=== PATIENT | female | born 1970 | race Caucasian/White ===

== ENCOUNTER 2017-04-15 01:55 | Emergency (ER) | payer SELFPAY ==
[2017-04-15] MEDS ORDERED: ONDANSETRON 4 MG/2 ML VIAL IVP ONE (01:58)
[2017-04-15] MEDS ORDERED: NS 1,000 ML IV ONE (01:58)
--- NOTE | 2017-04-15 02:01 | EDPHY ---
H & P HPI/ROS: HPI CHIEF COMPLAINT: Alcohol intoxication, minimally responsive HISTORY OF PRESENT ILLNESS: This patient 47-year-old female unknown medical or surgical history she presents emergency room by EMS highly intoxicated with alcohol and minimally responsive. Is reported by EMS that she just flew here from [facility] she is visiting her family. She has been here for 1 day. They went out this evening and she had multiple shots of liquor. They were unable to get her into the house to the late her an alleyway with a blanket. And called 911. EMS to arrive her minimally responsive. There is no reported trauma. They did place a nasal airway. And brought to the emergency room. Upon arrival to the emergency room she is extremely lethargic, she is breathing. Heart rate 108. Pulse ox 91% on room air. She does respond to painful stimuli but not verbal. There is no family at bedside. History review of systems is limited and only reported by EMS. Past Medical History: Unknown medical history Past Surgical History: Unknown surgical history Social History: From [facility]. Family History: Noncontributory ROS REVIEW OF SYSTEMS: A comprehensive 10 point review of systems is otherwise negative aside from elements mentioned in the history of present illness. Exam Constitutional extremely lethargic, smells of alcohol, highly intoxicated, triage nursing summary reviewed, vital signs reviewed Eyes normal conjunctivae and sclera, EOMI, PERRLA. Dysconjugate gaze. HENT normal inspection, atraumatic, moist mucus membranes, no epistaxis, neck supple/ no meningismus, no raccoon eyes. Respiratory clear to auscultation bilaterally, normal breath sounds, no respiratory distress, no wheezing. Cardiovascular rate normal, regular rhythm, no murmur, no edema, distal pulses normal. Gastrointestinal soft, non-tender, no rebound, no guarding, normal bowel sounds, no distension, no pulsatile mass. Genitourinary no CVA tenderness. Musculoskeletal no midline vertebral tenderness, full range of motion, no calf swelling, no tenderness of extremities, no meningismus, good pulses, neurovascularly intact. Skin pink, warm, & dry, no rash, skin atraumatic. Neurologic extremely lethargic. Dysconjugate gaze. Psychiatric normal mood/affect. Heme/Lymph/Immune no lymphadenopathy. Differential Diagnosis: Includes but is not limited to in a particular order acute alcohol intoxication, electrolyte disturbance, intracranial bleed. Medical Decision Making: Plan for this patient IV establishment full campus monitor, IV fluid bolus 1 L normal saline, 4 mg IV Zofran, check blood work, alcohol level. CT scan of her head due to how lethargic she is. Re-evaluation: CT scan of the head without IV contrast The results of the study are negative for acute bleed.. The study was read by . I viewed the images myself on the PACS system. 0302AM: Serum ETOH 420 0450AM: Patient remains very intoxicated with alcohol. Moaning at times. Her scan of her head does not show any acute bleed. Serum alcohol level 420. She needs further time to sober. Source: Patient, EMS Constitutional: Initial Vital Signs Temperature (C) 36.8 C 04/15/17 02:05 Heart Rate 53 L 04/15/17 02:05 Respiratory Rate 18 04/15/17 02:05 Blood Pressure 119/88 H 04/15/17 02:05 O2 Sat (%) 94 04/15/17 02:05 O2 Delivery Mode Room Air O2 (L/minute) 2 Allergies/Adverse Reactions: Penicillins Allergy (Verified 04/15/17 02:51) Home Medications: Medication Instructions Recorded Unobtainable 04/15/17 Medical Decision Making - Data Points Laboratory Results: Laboratory Results 04/15/17 02:09 04/15/17 02:09 04/15/17 04/15/17 02:09 02:09 WBC 10.00 10^3/uL H 10^3/uL (3.80-9.50) RBC 4.94 10^6/uL 10^6/uL (4.18-5.33) Hgb 15.0 g/dL g/dL (12.6-16.3) Hct 45.0 % % (38.0-47.0) MCV 91.1 fL fL (81.5-99.8) MCH 30.4 pg pg (27.9-34.1) MCHC 33.3 g/dL g/dL (32.4-36.7) RDW 12.6 % % (11.5-15.2) Plt Count 302 10^3/uL 10^3/uL (150-400) MPV 9.8 fL fL (8.7-11.7) Neut % (Auto) 58.3 % % (39.3-74.2) Lymph % (Auto) 34.6 % % (15.0-45.0) [place] % (Auto) 4.8 % % (4.5-13.0) Eos % (Auto) 1.4 % % (0.6-7.6) Baso % (Auto) 0.6 % % (0.3-1.7) Nucleat RBC Rel Count 0.0 % % (0.0-0.2) Absolute Neuts (auto) 5.83 10^3/uL 10^3/uL (1.70-6.50) Absolute Lymphs (auto) 3.46 10^3/uL H 10^3/uL (1.00-3.00) Absolute Monos (auto) 0.48 10^3/uL 10^3/uL (0.30-0.80) Absolute Eos (auto) 0.14 10^3/uL 10^3/uL (0.03-0.40) Absolute Basos (auto) 0.06 10^3/uL 10^3/uL (0.02-0.10) Absolute Nucleated RBC 0.00 10^3/uL 10^3/uL (0-0.01) Immature Gran % 0.3 % % (0.0-1.1) Immature Gran # 0.03 10^3/uL 10^3/uL (0.00-0.10) Sodium 147 mEq/L H mEq/L (134-144) Potassium 4.1 mEq/L mEq/L (3.5-5.2) Chloride 110 mEq/L mEq/L (97-110) Carbon Dioxide 18 mEq/l L mEq/l (22-31) Anion Gap 19 mEq/L H mEq/L (8-16) BUN 13 mg/dL mg/dL (7-23) Creatinine 0.7 mg/dL mg/dL (0.6-1.0) Estimated GFR > 60 Glucose 111 mg/dL H mg/dL (70-100) Calcium 9.6 mg/dL mg/dL (8.5-10.4) Specimen Hemolysis Salicylates < 1.0 mg/dL L mg/dL (2.0-20.0) Acetaminophen < 10 mcg/mL L mcg/mL (10-30) Ethyl Alcohol 420 mg/dL H* mg/dL (0-10) Medications Given: Discontinued Medications Sodium Chloride (Ns) 1,000 mls @ 0 mls/hr IV ONCE ONE PRN Reason: Wide Open Stop: 04/15/17 01:59 Last Admin: 04/15/17 03:01 Dose: 1,000 mls Ondansetron HCl (Zofran) 4 mg IVP EDNOW ONE Stop: 04/15/17 01:59 Last Admin: 04/15/17 03:02 Dose: 4 mg Departure - Departure Disposition: Home, Routine, Self-Care Clinical Impression: Alcoholic intoxication Qualifiers: Complication of substance-induced condition: uncomplicated Qualified Code(s): F10.920 - Alcohol use, unspecified with intoxication, uncomplicated Condition: Good Instructions: Alcohol Intoxication (ED) Referrals: Patient,NotPresent [Primary Care Provider] - As per Instructions
[2017-04-15 02:20] LABS: % IMMATURE GRANULYOCYTES 0.3 % (0.0-1.1); ABSOLUTE IMMATURE GRANULOCYTES 0.03 10^3/uL (0.00-0.10); ADD DIFF? NO; ADD MORPH? NO; ADD SCAN? NO; ATYPICAL LYMPHOCYTE FLAG 0 (0-99); FRAGMENT RBC FLAG 0 (0-99); LEFT SHIFT FLG 0 (0-99); LIPEMIA HEMOLYSIS FLAG 80 (0-99); MEAN CELL HEMOGLOBIN 30.4 pg (27.9-34.1); MEAN CELL HEMOGLOBIN CONCENTR. 33.3 g/dL (32.4-36.7); MEAN CELL VOLUME 91.1 fL (81.5-99.8); MEAN PLATELET VOLUME 9.8 fL (8.7-11.7); PLATELET CLUMPS FLAG 40 (0-99); PLATELET COUNT 302 10^3/uL (150-400); RED BLOOD CELL COUNT 4.94 10^6/uL (4.18-5.33); RED CELL DISTRIBUTION WIDTH 12.6 % (11.5-15.2)
[2017-04-15 02:33] LABS: ANION GAP 19 mEq/L (8-16); CALCIUM 9.6 mg/dL (8.5-10.4); CARBON DIOXIDE 18 mEq/l (22-31); CHLORIDE 110 mEq/L (97-110); CREATININE 0.7 mg/dL (0.6-1.0); GLOMERULAR FILTRATION RATE > 60; GLUCOSE 111 mg/dL (70-100); POTASSIUM 4.1 mEq/L (3.5-5.2); SALICYLATE < 1.0 mg/dL (2.0-20.0); SODIUM 147 mEq/L (134-144)
[2017-04-15 03:03] LABS: ETHANOL SERUM 420 mg/dL (0-10)
[2017-04-15 04:27] VITALS: TEMP 98.6
[2017-04-15 06:18] VITALS: RESP 16
[2017-04-15 08:06] VITALS: BP 137/94; PULSE 90; O2SAT 94
== END 2017-04-15 08:05 | disposition home or self-care (01) ==
DX: F10.920 Alcohol use, unspecified with intoxication, uncomplicated (principal)
CPT/HCPCS: 96374; G0480; J2405

== ENCOUNTER 2017-04-16 13:35 | Emergency (ER) | payer SELFPAY ==
[2017-04-16 13:44] VITALS: RESP 16; O2SAT 96
[2017-04-16] MEDS ORDERED: NS 1,000 ML IV ONE (14:48)
[2017-04-16] MEDS ORDERED: ONDANSETRON 4 MG/2 ML VIAL IVP ONE (15:01)
[2017-04-16] MEDS ORDERED: PANTOPRAZOLE SODIUM 40 MG in NS 100 ML IV ONE (15:01)
--- NOTE | 2017-04-16 15:27 | EDPHY ---
H & P Smoking Status: Current some day smoker Time Seen by Provider: 04/16/17 14:32 HPI/ROS: CHIEF COMPLAINT: Vomiting, dehydration HISTORY OF PRESENT ILLNESS: 47-year-old female presents to the emergency department with multiple episodes of vomiting since yesterday morning. The patient was seen in the emergency department yesterday and had elevated blood alcohol of over 400. She states that she is visiting [place] seeing her daughter and she drank too much alcohol. She states that she is not an alcoholic. She has been vomiting "every hour for the last 24 hours ". She urinated once this morning. Her last bowel movement was 4 days ago. She has some burning in the upper part of her abdomen. No diarrhea. No fevers or chills. No chest pain or difficulty breathing. She last vomited 4 hours ago and was only able to keep down just a little bit of water. REVIEW OF SYSTEMS: Constitutional: No fever, no chills. Eyes: No double or blurry vision. ENT: No sore throat. Respiratory: No cough, no shortness of breath. Cardiac: No chest pain. Gastrointestinal: Vomiting as above. Epigastric abdominal pain. No diarrhea. Genitourinary: No dysuria. Musculoskeletal: No neck or back pain. Skin: No rashes. Neurological: No headache. (Manda Muse) Past Medical/Surgical History: Helicobacter pylori (Manda Muse) Social History: (Manda Muse) Physical Exam: General Appearance: Alert, no distress. Eyes: Pupils equal and round. Extraocular motions are all intact. ENT: Mouth: Mucous membranes moist. Respiratory: No wheezing, rhonchi, or rales, lungs are clear to auscultation. Cardiovascular: Regular rate and rhythm. Gastrointestinal: Abdomen is soft and nontender, no masses, no rebound or guarding, bowel sounds normal. Neurological: Alert and oriented x 3, cranial nerves II through XII grossly intact Skin: Warm and dry, no rashes. Musculoskeletal: Nontender to palpate along the cervical, thoracic or lumbar spine. Neck is supple. Extremities: Full range of motion and no peripheral edema. Psychiatric: Patient is oriented X 3, there is no agitation. (Manda Muse) Constitutional: Initial Vital Signs Temperature (C) 37.4 C 04/16/17 13:41 Heart Rate 63 04/16/17 13:41 Respiratory Rate 16 04/16/17 13:41 Blood Pressure 167/95 H 04/16/17 13:41 O2 Sat (%) 96 04/16/17 13:41 O2 Delivery Mode Room Air Allergies/Adverse Reactions: Penicillins Allergy (Verified 04/16/17 13:45) Home Medications: Medication Instructions Recorded NK [No Known Home Meds] 04/16/17 Medical Decision Making ED Course/Re-evaluation: 47-year-old female presents to the emergency department dehydrated and vomiting. An IV was established the patient was given IV normal saline. She had an elevated white blood cell count of over 16,000 which I think is likely due to vomiting. The patient was initially very hesitant to have an IV. An IV was established and she was given IV normal saline as well as Zofran. She was also given 40 mg of Protonix IV. Patient was feeling much better. She tolerated crackers and water and is requesting to be discharged home. She has had no vomiting since 10:30 this morning. The patient is still continuing of some burning epigastric abdominal pain. She is tolerating p.o. fluids. We did discuss possible pancreatitis. The patient does not want to wait for further laboratory testing. I did also offer admission to the hospital, however the patient refused. She agreed to return to the hospital if she developed recurring vomiting, worsening abdominal pain, or if she did not urinate. (Manda Muse) The patient was evaluated and managed by the physician assistant professor of art. I have reviewed this chart and I agree with the findings and plan of care as documented , as indicated by my signature. I am the secondary supervising physician. ( Sabrina Bashir) Differential Diagnosis: Including but not limited to gastritis, dehydration, pancreatitis, cholecystitis , cholelithiasis, GERD, peptic ulcer disease (Manda Muse) - Data Points Laboratory Results: Laboratory Results 04/16/17 15:10 04/16/17 15:10 Medications Given: Discontinued Medications Sodium Chloride (Ns) 1,000 mls @ 0 mls/hr IV EDNOW ONE; Wide Open PRN Reason: Protocol Stop: 04/16/17 14:49 Last Admin: 04/16/17 15:14 Dose: 1,000 mls Pantoprazole Sodium 40 mg/ (Sodium Chloride) 100 mls @ 200 mls/hr IV EDNOW ONE Stop: 04/16/17 15:30 Last Admin: 04/16/17 15:55 Dose: 100 mls Ondansetron HCl (Zofran) 4 mg IVP EDNOW ONE Stop: 04/16/17 15:02 Last Admin: 04/16/17 15:18 Dose: 4 mg Departure - Departure Disposition: Home, Routine, Self-Care Clinical Impression: Vomiting, Dehydration Condition: Good Instructions: Dehydration (ED), Acute Nausea and Vomiting (ED) Additional Instructions: Clear liquids and slowly advance diet as tolerated. Abdominal Pain: Return to the Emergency Department immediately for increasing pain, fever, vomiting, or if not completely better in 8-12 hours. Referrals: Gloria Mason DO [Doctor of Osteopathy] - 1 day, if not improved (Primary care provider occupational health and safety officer)
[2017-04-16 15:28] LABS: % IMMATURE GRANULYOCYTES 0.5 % (0.0-1.1); ABSOLUTE IMMATURE GRANULOCYTES 0.09 10^3/uL (0.00-0.10); ADD DIFF? NO; ADD MORPH? NO; ADD SCAN? NO; ATYPICAL LYMPHOCYTE FLAG 0 (0-99); FRAGMENT RBC FLAG 0 (0-99); HEMATOCRIT 39.9 % (38.0-47.0); HEMOGLOBIN 13.6 g/dL (12.6-16.3); LEFT SHIFT FLG 0 (0-99); LIPEMIA HEMOLYSIS FLAG 90 (0-99); MEAN CELL HEMOGLOBIN 30.4 pg (27.9-34.1); MEAN CELL HEMOGLOBIN CONCENTR. 34.1 g/dL (32.4-36.7); MEAN CELL VOLUME 89.1 fL (81.5-99.8); MEAN PLATELET VOLUME 9.8 fL (8.7-11.7); PLATELET CLUMPS FLAG 10 (0-99); PLATELET COUNT 258 10^3/uL (150-400); RED BLOOD CELL COUNT 4.48 10^6/uL (4.18-5.33); RED CELL DISTRIBUTION WIDTH 12.5 % (11.5-15.2)
[2017-04-16 15:53] LABS: ANION GAP 15 mEq/L (8-16); CALCIUM 9.7 mg/dL (8.5-10.4); CARBON DIOXIDE 24 mEq/l (22-31); CHLORIDE 100 mEq/L (97-110); CREATININE 0.6 mg/dL (0.6-1.0); ETHANOL SERUM < 10 mg/dL (0-10); GLOMERULAR FILTRATION RATE > 60; GLUCOSE 121 mg/dL (70-100); POTASSIUM 3.2 mEq/L (3.5-5.2); SODIUM 139 mEq/L (134-144)
[2017-04-16 17:16] VITALS: BP 135/89; PULSE 71; TEMP 98.6
== END 2017-04-16 17:16 | disposition home or self-care (01) ==
DX: E86.0 Dehydration (principal); R11.10 Vomiting, unspecified; E86.9 Volume depletion, unspecified; F17.200 Nicotine dependence, unspecified, uncomplicated
CPT/HCPCS: 96365; G0480; J2405